=== PATIENT | female | born 2000 | race Caucasian/White ===

== ENCOUNTER 2020-12-18 10:59 | Emergency (ER) | payer OTHER ==
[2020-12-18 11:19] VITALS: BP 108/68; PULSE 57; RESP 18; TEMP 98.8
--- NOTE | 2020-12-18 11:45 | ED ---
Skin/Abscess/FB HPI - General Chief complaint: Skin/Abscess/Foreign Body Stated complaint: Female Time Seen by Provider: 12/18/20 11:23 Source: patient Mode of arrival: ambulatory Limitations: no limitations - History of Present Illness Initial comments: 20-year-old female presents to emergency Department with a chief complaint of retained tampon. Patient reports she inserted a tampon yesterday but was not able to remove it today. States the string was "lost". She denies any abdominal cramping. She denies any vaginal discharge or bleeding. She denies any urinary symptoms. - Related Data Previous Rx's Medication Instructions Recorded [facility] [Lithobid] 900 mg PO HS #60 tablet.er 11/27/17 Allergies Allergy/AdvReac Type Severity Reaction Status Date / Time Penicillins Allergy Unknown Verified 12/18/20 11:17 Childhood Review of Systems ROS Statement: Those systems with pertinent positive or pertinent negative responses have been documented in the HPI. ROS Other: All systems not noted in ROS Statement are negative. Past Medical History Past Medical History: No Reported History History of Any Multi-Drug Resistant Organisms: None Reported Past Surgical History: Appendectomy, Orthopedic Surgery Past Anesthesia/Blood Transfusion Reactions: No Reported Reaction Past Psychological History: Anxiety, Depression Smoking Status: Never smoker Past Alcohol Use History: None Reported Past Drug Use History: None Reported - Past Family History Family Additional Family Medical History / Comment(s): Mother with bipolar disorder. heart disease and cancer runs in the family General Exam Limitations: no limitations General appearance: alert, in no apparent distress Head exam: Present: atraumatic, normocephalic, normal inspection Eye exam: Present: normal appearance, PERRL, EOMI Pupils: Present: normal accommodation ENT exam: Present: normal exam, normal oropharynx, mucous membranes moist Neck exam: Present: normal inspection, full ROM. Absent: tenderness Respiratory exam: Present: normal lung sounds bilaterally. Absent: respiratory distress Cardiovascular Exam: Present: regular rate, normal rhythm, normal heart sounds GI/Abdominal exam: Present: soft. Absent: distended, tenderness, guarding External exam: Present: normal external exam Speculum exam: Present: foreign body (Retained tampon) Extremities exam: Present: normal inspection, full ROM Back exam: Present: normal inspection, full ROM Neurological exam: Present: alert, oriented X3 Psychiatric exam: Present: normal affect, normal mood Skin exam: Present: warm, dry, intact, normal color Course Vital Signs 12/18/20 11:15 Temperature 98.8 F Pulse Rate 57 L Respiratory 18 Rate Blood Pressure 108/68 O2 Sat by Pulse 99 Oximetry Procedures - Procedures Initial comment: Vaginal foreign body Tampon was removed with large plastic forceps. Patient tolerate the procedure well. No signs of injury to the vaginal wall or cervix. Medical Decision Making - Medical Decision Making 20-year-old female presents to emergency Department with chief complaint retained tampon. I removed the tampon. Case discussed with Dr. Beck. Disposition Clinical Impression: Retained tampon, Vaginal foreign body Disposition: HOME SELF-CARE Condition: Stable Instructions (If sedation given, give patient instructions): Vaginal Foreign Body (ED) Additional Instructions: Please return to the Emergency Department if symptoms worsen or any other concerns. Is patient prescribed a controlled substance at d/c from ED?: No Referrals: None,Stated [Primary Care Provider] - 1-2 days Time of Disposition: 12:01
== END 2020-12-18 12:15 | disposition home or self-care (01) ==
LOC: EC 10:59
DX: T19.2XXA Foreign body in vulva and vagina, initial encounter (principal); Z88.0 Allergy status to penicillin; Z90.49 Acquired absence of other specified parts of digestive tract; X58.XXXA Exposure to other specified factors, initial encounter
CPT/HCPCS: 99283